=== PATIENT | female | born 1970 | race Caucasian/White ===

== ENCOUNTER 2017-01-27 13:20 | Outpatient (CLI) | payer MEDICAID ==
[2017-01-27 19:05] LABS: BASOPHILS % (AUTO) 0.3 %; EOSINOPHILS # (AUTO) 0.2 10^3/uL (0.0-0.7); EOSINOPHILS % (AUTO) 2.2 %; HCT - HEMATOCRIT 36.9 % (37.0-47.0); HGB - HEMOGLOBIN 12.3 g/dL (12.0-16.0); LYMPHOCYTES # (AUTO) 2.3 10^3/uL (1.5-3.5); LYMPHOCYTES % (AUTO) 30.4 %; MEAN CORPUSCULAR HGB CONC 33.3 g/dL (32.0-36.0); MEAN CORPUSCULAR VOLUME 81.2 fL (81.0-99.0); MEAN PLATELET VOLUME 8.5 fL (7.9-10.8); MONOCYTES # (AUTO) 0.3 10^3/uL (0.0-1.0); MONOCYTES % (AUTO) 4.5 %; NEUTROPHILS # (AUTO) 4.7 10^3/uL (1.5-6.6); NEUTROPHILS % (AUTO) 62.6 %; RED BLOOD COUNT 4.54 10^6/uL (4.20-5.40); RED CELL DISTRIBUTION WIDTH 13.8 % (12.0-15.0); UNCORRECTED WHITE BLOOD COUNT 7.6 x10^3/uL; WHITE BLOOD COUNT 7.6 x10^3/uL (4.8-10.8)
[2017-01-27 19:34] LABS: FERRITIN 39.5 ng/mL (11.0-306.8); TOTAL T3 1.19 ng/mL (0.87-1.78)
[2017-01-27 19:46] LABS: THYROID STIMULATING HORMONE 0.65 uIU/mL (0.34-5.60)
== END 2017-01-27 13:21 | disposition home or self-care (01) ==
LOC: LAB.F 13:20
PROVIDERS: ATTEND Family Medicine
DX: E03.9 Hypothyroidism, unspecified (principal); R53.83 Other fatigue; D64.9 Anemia, unspecified
CPT/HCPCS: 36415; 82728; 84439; 84443; 84480; 84481; 84482; 85025

== ENCOUNTER 2017-04-07 10:16 | Outpatient (CLI) | payer MEDICAID ==
--- NOTE | 2017-04-07 13:10 | XRAY Report ---
THREE VIEW BILATERAL FEET: 04/07/2017 CLINICAL INDICATION: Bilateral pain, tendinitis. FINDINGS: AP, lateral, and oblique views of the bilateral feet demonstrate no evidence of acute frac ture or dislocation. Bilateral posterior calcaneal spurring is present. No radiopaque foreign body is seen in the soft tissues. IMPRESSION: POSTERIOR CALCANEAL SPURRING BILATERALLY. JOB #: [id number] EXT JOB #:[id number]
== END 2017-04-07 10:17 | disposition home or self-care (01) ==
LOC: DI.S 10:16
PROVIDERS: ATTEND Family Medicine
DX: M77.32 Calcaneal spur, left foot (principal); M77.31 Calcaneal spur, right foot

== ENCOUNTER → 2017-04-07 | Outpatient (CLI) | payer MEDICAID | LOC: LAB.F 08:00 | PROVIDERS: ATTEND Family Medicine | DX: E55.9 Vitamin D deficiency, unspecified (principal); D64.9 Anemia, unspecified; R53.83 Other fatigue | CPT/HCPCS: 36415; 82306; 82728 ==

== ENCOUNTER 2018-08-31 13:54 | Outpatient (CLI) | payer MEDICAID ==
--- NOTE | 2018-08-31 15:27 | Mammography Report ---
Reason: ABNORMAL MAMMO, RIGHT BREAST Procedure Date: 08/31/2018 Accession Number: [id number] / [id number] Procedure: [facility] - Diagnostic Dig Bilat CPT Code: FULL RESULT: EXAM: Diagnostic Dig Bilat DATE: 08/31/2018 2:30 PM CLINICAL HISTORY: Diagnostic mammogram for follow-up of calcifications in the right upper inner central breast. TECHNIQUE: Bilateral CC and MLO views were obtained. A right spot magnified ML view was also obtained. COMPARISON: None FINDINGS: The breasts demonstrate scattered fibroglandular densities bilaterally. The area of calcifications in the right upper inner central breast appears stable when compared to 2015 without interval development of pleomorphism or mass and with milk of calcium seen layering on the spot magnified view, typically benign. Suspicious findings of architectural distortion, mass or suspicious calcifications are seen in either breast. IMPRESSION: Benign findings RECOMMENDATION: Recommend routine annual Screening mammography unless otherwise clinically indicated. BIRADS CATEGORY 2: Benign findings STANDARD QUALIFYING STATEMENTS: 1. This examination was not reviewed with the aid of Computer-Aided Detection (CAD). 2. A negative or benign imaging report should not delay biopsy if clinically suspicious findings are present. Consider surgical consultation if warrented. More than 5% of cancers are not identified by imaging. 3. Dense breasts may obscure an underlying neoplasm.
== END 2018-08-31 13:55 | disposition home or self-care (01) ==
LOC: DI 13:54
PROVIDERS: ATTEND Nurse Practitioner Family
DX: R92.8 Other abnormal and inconclusive findings on diagnostic imaging of breast (principal)
CPT/HCPCS: 77066

== ENCOUNTER 2019-06-30 07:43 | Outpatient (CLI) | payer OTHER ==
[2019-06-30 10:28] LABS: BASOPHILS # (AUTO) 0.1 10^3/uL (0.0-0.1); BASOPHILS % (AUTO) 0.8 %; EOSINOPHILS # (AUTO) 0.2 10^3/uL (0.0-0.7); EOSINOPHILS % (AUTO) 2.3 %; HGB - HEMOGLOBIN 11.8 g/dL (12.0-16.0); LYMPHOCYTES # (AUTO) 2.2 10^3/uL (1.5-3.5); LYMPHOCYTES % (AUTO) 34.8 %; MEAN CORPUSCULAR HEMOGLOBIN 27.1 pg (27.0-31.0); MEAN CORPUSCULAR HGB CONC 31.5 g/dL (32.0-36.0); MEAN CORPUSCULAR VOLUME 86.2 fL (81.0-99.0); MEAN PLATELET VOLUME 10.1 fL (7.9-10.8); MONOCYTES # (AUTO) 0.4 10^3/uL (0.0-1.0); MONOCYTES % (AUTO) 6.5 %; NEUTROPHILS # (AUTO) 3.6 10^3/uL (1.5-6.6); NEUTROPHILS % (AUTO) 55.3 %; PLT - PLATELET COUNT 415 10^3/uL (130-450); RED BLOOD COUNT 4.35 10^6/uL (4.20-5.40); RED CELL DISTRIBUTION WIDTH 14.2 % (12.0-15.0); WHITE BLOOD COUNT 6.4 x10^3/uL (4.8-10.8)
[2019-06-30 16:05] LABS: T4 (THYROXINE) 4.3 ug/dL (6.09-12.23)
[2019-06-30 16:08] LABS: THYROID STIMULATING HORMONE 0.85 uIU/mL (0.34-5.60)
[2019-06-30 16:10] LABS: FREE T4 (FREE THYROXINE) 0.54 ng/dL (0.58-1.64)
[2019-06-30 16:14] LABS: FERRITIN 23.2 ng/mL (11.0-306.8)
[2019-06-30 16:21] LABS: ALBUMIN 4.1 g/dL (3.2-5.5); ALBUMIN/GLOBULIN RATIO 1.3 (1.0-2.2); ALKALINE PHOSPHATASE 67 IU/L (42-121); ALT ALANINE AMINOTRANSFERASE 18 IU/L (10-60); AST ASPARTATE AMINOTRANSFERASE 20 IU/L (10-42); BILIRUBIN,TOTAL 0.4 mg/dL (0.2-1.0); BUN - BLOOD UREA NITROGEN 13 mg/dL (6-20); CALCIUM 8.6 mg/dL (8.5-10.3); CARBON DIOXIDE - CO2 27 mmol/L (21-32); CHLORIDE 103 mmol/L (101-111); CHOL/HDL RATIO 4.2 (<4.4); CHOLESTEROL 288 mg/dL; CREATININE 0.6 mg/dL (0.4-1.0); GFR - MDRD 106 (>89); GLUCOSE 97 mg/dL (70-100); HDL CHOLESTEROL 69 mg/dL; LDL CHOLESTEROL,CALCULATED 200 mg/dL; LDL/HDL RATIO 2.9 (<4.4); SODIUM 136 mmol/L (135-145); TOTAL PROTEIN 7.2 g/dL (6.7-8.2); VLDL CHOLESTEROL 19 mg/dL
== END 2019-06-30 07:44 | disposition home or self-care (01) ==
LOC: LAB.S 07:43
PROVIDERS: ATTEND Nurse Practitioner Family
DX: Z00.00 Encounter for general adult medical examination without abnormal findings (principal); E03.2 Hypothyroidism due to medicaments and other exogenous substances; E55.9 Vitamin D deficiency, unspecified; E78.5 Hyperlipidemia, unspecified; N95.9 Unspecified menopausal and perimenopausal disorder
CPT/HCPCS: 36415; 80053; 80061; 82306; 82627; 82728; 83721; 84436; 84439; 84443; 84481; 85025; 86376; 86800

== ENCOUNTER 2021-09-12 15:21 | Outpatient (CLI) | payer OTHER ==
--- NOTE | 2021-09-13 08:41 | Mammography Report ---
BILATERAL DIGITAL SCREENING MAMMOGRAM 3D/2D: 09/12/2021 CLINICAL: Routine screening. Comparison is made to exams dated: 08/31/2018 mammogram, 10/26/2014 mammogram, 03/15/2014 mammogram, and 02/16/2014 mammogram - [facility]. There are scattered fibroglandular elements in b oth breasts. No significant masses, calcifications, or other findings are seen in either breast. There has been no significant interval change. IMPRESSION: NEGATIVE There is no mammographic evidence of malignancy. A 1 year screening mammogram is recommended. This exam was interpreted at Station ID: [id number]. NOTE: For mammograms, a report in lay terms will be sent to the patient. Approximately 15% of breast malignancies will not be visualized mammographically. In the management of a palpable breast mass, a negative mammogram must not discourage biopsy of a clinically suspicious lesion. Electronically Signed By: Antony Ambrose acr/penrad:09/12/2021 16:11:12 ACR BI-RADS Category 1: Negative 3341F PARENCHYMAL PATTERN: (A) - The breast(s) demonstrate(s) scattered fibroglandular densities. BI-RADS CATEGORY: (1) - 1 RECOMMENDATION: (ANNUAL) - Recommend routine annual screening mammography. [id number] 1 year screening LATERALITY: (B)
== END 2021-09-12 15:22 | disposition home or self-care (01) ==
LOC: DI.S 15:21
PROVIDERS: ATTEND Physician Assistant
DX: Z12.31 Encounter for screening mammogram for malignant neoplasm of breast (principal)

== ENCOUNTER 2021-10-12 10:40 | Outpatient (CLI) | payer OTHER ==
--- NOTE | 2021-10-12 11:24 | SLEEP CARE CONSULTATION ---
Information from patient questionnaire entered by Peggy Browne MA. I have reviewed and concur with the information entered by Peggy Browne MA. This document represents the service I personally performed and the decisions made by , Yani Rock ARNP. History of Present Illness Service Date and Time: 10/12/2021 1040 Reason for Visit: New patient Chief Complaint: reports: Unrefreshed sleep, Snoring, Fatigue, Frequent awakenings at night, Other (headaches that come on during sleep) Date of Onset: 5 YEARS Usual bedtime: 1100 PM Time it takes to fall asleep: 10 - 20 MINUTES Snores at night: Yes Observed to quit breathing while asleep: No (sleep alone for last 10 years) Number of times waking at night: 3-5 Reasons for waking at night: reports: Snoring (NOISE, CATS,), Gasping for air (only on back), Pain, Other (cats) Toss, Turn, or Twitch while sleeping: Yes (twitch and snap her jaw; not a toss/ramirez) Recalls having dreams: Yes Usually gets out of bed at: 0730 Feels refreshed in the morning: No Morning headache: Yes (1-2 times a week; will wake her up at night; hx migraines) Sleepy or fatigued during the day: Yes (fatigued) Ever fallen asleep while driving: No Takes day naps: No Prior sleep studies: No Additional HPI information: I had the pleasure of seeing CHARLIE WILD today regarding the possibility of her having a sleep disorder. Her current complaints are unrefreshed sleep, snoring, fatigue, frequent night awakenings. She has a history of fatigue, depression and headaches and has been working with other medical doctors until one doctor suggested she may have sleep apnea. She will get headaches in the middle of the night that wake her up. She had heard herself snore, it has woken her up and she has a application on her phone that has recorded her snoring. She cannot sleep on her back because she will wake up choking. - Parasomnia Symptoms Ever been unable to move upon waking from sleep: No Walks in sleep: No Talks in sleep: No Ever acted out dreams in sleep: No Ever felt weak in the knees when startled or emotional: No Bothered by creepy, crawly, restless sensations in legs: No Problems with memory or concentration: Yes (short term memory and concentration a little bit) Subjective Initial [place] Sleepiness Scale score: 5 (2021) Past Medical History Past Medical History: reports: Hypothyroidism, Anxiety, Asthma ( intermittent/seasonal Reactive Airway Disease aka cough variant asthma), Depression, Attention deficit, Other (borderline glucose and cholesterol issues) Social History The patient's occupation is a SE. Patient is Single and lives in [place]. Have you smoked in the past 12 months: No Alcohol use: Yes Alcohol amount and frequency: 1-2 X WEEKLY Caffeine use: Yes Caffeine amount and frequency: 2 X DAILY Family History Family history of sleep disordered breathing: Yes Family Hx Sleep Apnea: Mother: Snoring, Sibling: Snoring Allergies and Home Medications Drug allergies reviewed: Yes (NKDA) Home medication list reviewed: Yes (SEE LIST) Allergy and home medication list: Levothyroxine 0.05 mg Esctalopram 20 mg Bupropion 150 mg Propranolol 10 mg, prn anxiety Sumatriptan 50 mg prn migraine/headache Advair 100 mcg, prn D3 5000/K2 Claridge Fish oil Melatonin 3 mg Red rice yeast Magnesium Citrate Review of Systems Weight gain over past 5 years: 25 Weight loss over past 5 years: 25 Cardiovascular: denies: high blood pressure Respiratory: reports: shortness of breath, chronic cough Gastrointestinal: denies: heartburn Neurological: reports: headaches, gait or balance problems Psychiatric: reports: Attention Deficit Hyperactivity, anxiety, depression Ear/Nose/Throat: reports: nasal congestion Endocrine: reports: thyroid disease, sluggishness Musculoskeletal: reports: joint pain, mobility problems Physical Exam Vital signs obtained and entered by: Analilia BROWNE CMA [facility] Blood Pressure: 122/73 (LEFT, PULSE 79, RESP 16,) Cuff size: wrist Heart Rate: 78 O2 Saturation: 99 (N95) Height: 5 ft 4 in Weight: 196 lb (WITH COTHES) Body Mass Index: 33.6 BMI Classification: Obese Neck circumference: 15 (inches) Mouth and throat: narrow oropharynx Soft palate: long Hard palate: normal Uvula: long Uvula visualization: 50% Mallampati Class II Tongue: enlarged in size with teeth serra on lateral edges Tonsils: small Neck: normal w/o lymphadenopathy or thyromegaly Heart: regular rate and rhythm Lungs: clear bilaterally Impression and Plan 1. Suspected Obstructive Sleep Apnea-Hypopnea Syndrome, as suggested by a history of irregular snoring, gasping or choking in sleep, morning headache, frequent awakening during the night, unrefreshed sleep, and cognitive impairment. Narrow oropharynx and obesity are common predisposing factors for obstructive sleep apnea-hypopnea syndrome. I recommend proceeding to polysomnography to confirm the diagnosis and to assess severity. If the patient has significant sleep disordered breathing, a manual CPAP titration study will also be performed to find the optimal treatment pressure. I informed the patient of what the sleep studies involve and after some discussion, obtained agreement to proceed. The pathophysiology of obstructive sleep apnea-hypopnea syndrome was discussed with the patient and health risks of cardiovascular and cerebrovas cular disease if not treated. Risks of drowsy driving discussed in detail and patient advised to avoid long distance driving and to slab puller at the first sign of drowsiness. Patient agreed to plan. * Schedule polysomnography +- manual CPAP titration study and return in 1-2 weeks after the study to discuss result and initiate therapy. * Avoid long distance driving or driving when feeling sleepy. * Avoid alcohol, sedative and muscle relaxant around bedtime. * Attempt to lose weight. * Review instructions provided by trained office staff on how to prepare for the sleep study. * Return for follow-up after sleep study completed. Counseling Topics: Weight loss health impact Visit Type: In Office Time Spent with Patient (minutes): 38 Provider Statement: I spent 100% of the Face to Face Visit with the patient with greater than 50% spent counseling the patient and coordination of care.
[2021-10-12 11:25] VITALS: BP 122/73
== END 2021-10-12 10:41 | disposition home or self-care (01) ==
LOC: SC 10:40
PROVIDERS: ATTEND Nurse Practitioner Family
DX: R06.83 Snoring (principal); R51.9 Headache, unspecified; G47.8 Other sleep disorders; R41.89 Other symptoms and signs involving cognitive functions and awareness; E66.9 Obesity, unspecified; Z68.33 Body mass index [BMI] 33.0-33.9, adult
CPT/HCPCS: 99203; 99212

== ENCOUNTER 2021-11-30 08:50 | Outpatient (CLI) | payer OTHER ==
--- NOTE | 2021-11-30 09:17 | SLEEP CARE CONSULTATION ---
Information from patient questionnaire entered by Peggy Romo MA. I have reviewed and concur with the information entered by Peggy Romo MA. This document represents the service I personally performed and the decisions made by , Yani Rock ARNP. History of Present Illness Service Date and Time: 11/30/2021 0850 Initial [place] Sleepiness Scale score: 5 (2021) Current [place] Sleepiness Scale score: 5 (11/2021) Additional HPI information: CHARLIE WILD returns for follow up and results of the recently performed polysomnography. The patient was informed of the following findings: No significant sleep disordered breathing with an average AHI of 4.3 and tierney oxygen saturation of 87%. Her supine AHI was elevated at 8.6. I explained the pathophysiology behind obstructive sleep apnea. Patient does not have sleep apnea and was advised how weight gain could increase the risk of developing sleep apnea in the future. I strongly encouraged the patient to lose weight. Patient does not have significant sleep disordered breathing but has elevated AHI in supine position so advised positional therapy. Methods to achieve positional management therapy were discussed; such as, positioning with pillows, wearing a T-shirt with tennis balls sewn into the back, Rematee shirt, Zzomba belt and Slumberbump belt. Patient has light to moderate snoring. Snoring can be reduced by weight loss. Weight loss is best achieved with diet consult. Patient instructed to contact PCP for referral. Snoring can also be treated with an oral appliance from a dentist. Advised to check insurance coverage. In addition, an ENT evaluation can be do to see if other treatment is indicated. Patient counseled not drink alcohol less than 4 hours before bedtime as it can increase snoring and apnea. Patient was cautioned about risks of drowsy driving until sleepiness symptoms resolve. Patient denies drowsy driving. Sleep Study - Results Type of Sleep Study: Polysomnography (F/U POLY, 11/09/2021 [facility],) Prior sleep studies: No Polysomnography/Home Sleep Study results: IMPRESSION: The quality of the study is good. The patient had normal sleep efficiency. The sleep architecture was relatively normal as well considering the first night effect. Respiratory monitoring showed no significant sleep disordered breathing (AHI = 4.3) or hypoxia ([place] oxygen saturation of 87% and only 0.26% the total sleep time was spent with oxygen saturation below 90%). The respiratory events occurred almost exclusively during supine REM sleep (supine AHI = 8.6; non-supine = 0.58). Snore was light to moderate in intensity. There was no significant periodic leg movement of sleep. Cardiac rhythm was normal sinus rhythm without significant arrhythmia. No abnormal behavior (parasomnia) observed during the night. Allergies and Home Medications Home medication list reviewed: Yes (no changes) Review of Systems Review of systems same as previous: Yes (no changes) Physical Exam Vital signs obtained and entered by: Analilia ROMO CMA [facility] Blood Pressure: 121/76 (RESP 14, PULSE 81, LEFT, ) Cuff size: wrist Heart Rate: 76 O2 Saturation: 98 (N95) Height: 5 ft 4 in Weight: 200 lb (CLOTHES AND BOOTS) Body Mass Index: 34.3 BMI Classification: Obese Impression and Plan Snoring but no significant sleep disordered breathing. Since patients supine AHI is elevated, patient advised to avoid sleeping supine as this will reduce snoring and apnea. Patient advised that often weight loss will reduce snoring as well as apnea risk. An oral appliance can also be used for snoring. This would require a dental consultation. Patient cautioned not to use other online appliances as can cause bite issues. A list of accredited dentists in [facility] and one local dentist who makes oral appliances is available in office. Patient is advised to check if insurance will cover. An ENT consult can also be helpful to determine if any other treatment is an option. * Attempt to lose weight * Avoid alcohol consumption near bedtime * The patient is cautioned about driving until sleepiness is completely resolved. * Return as needed for follow up. Counseling Topics: Sleeping position, Weight loss health impact Visit Type: In Office Time Spent with Patient (minutes): 20 Provider Statement: I spent 100% of the Face to Face Visit with the patient with greater than 50% spent counseling the patient and coordination of care.
[2021-11-30 09:18] VITALS: BP 121/76
== END 2021-11-30 08:51 | disposition home or self-care (01) ==
LOC: SC 08:50
PROVIDERS: ATTEND Nurse Practitioner Family
DX: R06.83 Snoring (principal); E66.9 Obesity, unspecified; Z68.34 Body mass index [BMI] 34.0-34.9, adult
CPT/HCPCS: 99212; 99213